=== PATIENT | male | born 1945 | race Caucasian/White ===

== ENCOUNTER 2019-10-21 10:00 | Outpatient (RCR) | payer MEDICARE, OTHER, SELFPAY | END 2020-04-07 07:25 | LOC: CAR 10:00 | PROVIDERS: Family Provider Family Medicine; PCP Family Medicine; Visit Provider Internal Medicine Cardiovascular Disease | DX: Z95.5 Presence of coronary angioplasty implant and graft (principal); I25.2 Old myocardial infarction | CPT/HCPCS: 93798 ==

== ENCOUNTER → 2019-11-20 09:51 | Outpatient (CLI) | payer MEDICARE, OTHER, SELFPAY ==
[2019-11-20 10:40] LABS: Add Manual Diff / Slide Review NO; Basophils Absolute Auto 0 /uL (0-100); Basophils Percent Auto 0.4 % (0-2); Eosinophils Absolute Auto 100 /uL (0-450); Eosinophils Percent Auto 1.2 % (2-4); Hematocrit 42.5 % (41-53); Hemoglobin 14.4 g/dL (13.5-17.5); Lymphocytes Absolute Auto 1300 /uL (1100-4500); Lymphocytes Percent Auto 17.6 % (25-40); Mean Corpuscular Hemoglobin 33.6 PG (26-34); Mean Corpuscular Volume 98.9 fL (80-100); Monocytes Absolute Auto 600 /uL (0-900); Monocytes Percent Auto 8.5 % (3-14); Neutrophils Absolute Auto 5400 /uL (1500-7000); Neutrophils Percent Auto 72.3 % (50-75); Platelet Count 176 X10^3/uL (150-400); Red Blood Cell Count 4.29 X10^6/uL (4.5-5.9); Red Cell Distribution Width 13.8 % (11.6-14.8); White Blood Cell Count 7.4 X10^3/uL (4.5-11.0)
[2019-11-20 11:44] LABS: BUN Creatinine Ratio 14.2 (6-22); Blood Urea Nitrogen 18 mg/dL (9-20); Calcium 9.6 mg/dL (8.4-10.2); Carbon Dioxide 29 mmol/L (22-32); Chloride 104 mmol/L (98-107); Cholesterol 105 mg/dL (140-199); Estimated Glomerular Filt Rate 55.7 mL/min (>60); Glucose 103 mg/dL (80-110); HDL Cholesterol 27 mg/dL (40-60); HEMOLYSIS < 15 (0-50); LDL Cholesterol Calculated 41 mg/dL (<100); Potassium 4.6 mmol/L (3.4-5.1); Sodium 140 mmol/L (137-145); Triglycerides 186 mg/dL (35-150)
== END ==
PROVIDERS: Family Provider Family Medicine; PCP Internal Medicine; Referring Provider Internal Medicine Cardiovascular Disease; Visit Provider Internal Medicine Cardiovascular Disease
DX: I10 Essential (primary) hypertension (principal); E78.5 Hyperlipidemia, unspecified
CPT/HCPCS: 36415; 80048; 80061; 85025

== ENCOUNTER → 2020-06-21 07:55 | Outpatient (CLI) | payer MEDICARE, OTHER, SELFPAY ==
[2020-06-21 09:32] LABS: Add Manual Diff / Slide Review NO; Basophils Absolute Auto 0 /uL (0-100); Basophils Percent Auto 0.9 % (0-2); Eosinophils Absolute Auto 100 /uL (0-450); Eosinophils Percent Auto 1.4 % (2-4); Hematocrit 42.1 % (41-53); Hemoglobin 14.5 g/dL (13.5-17.5); Lymphocytes Absolute Auto 1600 /uL (1100-4500); Mean Corpuscular HGB Conc 34.5 % (30-36); Mean Corpuscular Hemoglobin 33.8 PG (26-34); Mean Corpuscular Volume 98.2 fL (80-100); Monocytes Absolute Auto 400 /uL (0-900); Monocytes Percent Auto 7.6 % (3-14); Neutrophils Absolute Auto 2700 /uL (1500-7000); Neutrophils Percent Auto 56.1 % (50-75); Platelet Count 159 X10^3/uL (150-400); Red Blood Cell Count 4.29 X10^6/uL (4.5-5.9); Red Cell Distribution Width 13.6 % (11.6-14.8); White Blood Cell Count 4.8 X10^3/uL (4.5-11.0)
[2020-06-21 10:11] LABS: BUN Creatinine Ratio 17.1 (6-22); Blood Urea Nitrogen 22 mg/dL (9-20); Calcium 9.3 mg/dL (8.4-10.2); Carbon Dioxide 30 mmol/L (22-32); Chloride 100 mmol/L (98-107); Cholesterol 144 mg/dL (140-199); Estimated Glomerular Filt Rate 54.6 mL/min (>60); Glucose 110 mg/dL (80-110); HDL Cholesterol 32 mg/dL (40-60); HEMOLYSIS < 15 (0-50); LDL Cholesterol Calculated 50 mg/dL (<100); Potassium 4.9 mmol/L (3.4-5.1); Sodium 135 mmol/L (137-145); Triglycerides 311 mg/dL (35-150)
== END ==
PROVIDERS: Family Provider Family Medicine; PCP Internal Medicine; Referring Provider Internal Medicine Cardiovascular Disease; Visit Provider Internal Medicine Cardiovascular Disease
DX: E78.5 Hyperlipidemia, unspecified (principal); I10 Essential (primary) hypertension
CPT/HCPCS: 36415; 80048; 80061; 85025

== ENCOUNTER → 2022-05-18 16:46 | Outpatient (CLI) | payer MEDICARE, OTHER, SELFPAY | PROVIDERS: Family Provider Family Medicine; PCP Internal Medicine; Referring Provider Internal Medicine; Visit Provider Internal Medicine | DX: Z23 Encounter for immunization (principal) | CPT/HCPCS: 90471; 90662 ==

== ENCOUNTER → 2022-08-07 07:47 | Outpatient (CLI) | payer MEDICARE, OTHER, SELFPAY ==
[2022-08-07 08:53] LABS: Add Manual Diff / Slide Review NO; Basophils Absolute Auto 0 /uL (0-100); Basophils Percent Auto 0.7 % (0-2); Eosinophils Absolute Auto 100 /uL (0-450); Eosinophils Percent Auto 2.3 % (2-4); Hematocrit 41.5 % (41-53); Lymphocytes Absolute Auto 1600 /uL (1100-4500); Lymphocytes Percent Auto 36.5 % (25-40); Mean Corpuscular HGB Conc 33.7 % (30-36); Mean Corpuscular Hemoglobin 32.8 PG (26-34); Mean Corpuscular Volume 97.3 fL (80-100); Monocytes Absolute Auto 300 /uL (0-900); Monocytes Percent Auto 6.6 % (3-14); Neutrophils Absolute Auto 2300 /uL (1500-7000); Neutrophils Percent Auto 53.9 % (50-75); Platelet Count 169 X10^3/uL (150-400); Red Blood Cell Count 4.26 X10^6/uL (4.5-5.9); Red Cell Distribution Width 14.2 % (11.6-14.8); White Blood Cell Count 4.3 X10^3/uL (4.5-11.0)
[2022-08-07 08:56] LABS: BUN Creatinine Ratio 14.2 (6-22); Blood Urea Nitrogen 17 mg/dL (9-20); Calcium 8.8 mg/dL (8.4-10.2); Carbon Dioxide 28 mmol/L (22-32); Chloride 100 mmol/L (98-107); Cholesterol 170 mg/dL (140-199); Estimated Glomerular Filt Rate > 60 mL/min (>60); Glucose 108 mg/dL (80-110); HDL Cholesterol 29 mg/dL (40-60); HEMOLYSIS < 15 (0-50); LDL Cholesterol Calculated 91 mg/dL (<100); Potassium 4.8 mmol/L (3.4-5.1); Sodium 136 mmol/L (137-145); Triglycerides 249 mg/dL (35-150)
== END ==
PROVIDERS: Family Provider Family Medicine; PCP Internal Medicine; Referring Provider Internal Medicine Cardiovascular Disease; Visit Provider Internal Medicine Cardiovascular Disease
DX: E78.5 Hyperlipidemia, unspecified (principal); I25.10 Atherosclerotic heart disease of native coronary artery without angina pectoris
CPT/HCPCS: 36415; 80048; 80061; 85025

== ENCOUNTER → 2023-02-19 12:56 | Outpatient (CLI) | payer MEDICARE, OTHER, SELFPAY ==
--- NOTE | 2023-02-19 | DI.US.S_ITS ---
PROCEDURE: US RENAL COMPLETE INDICATIONS: Hesitancy of micturition TECHNIQUE: Real-time scanning was performed of the kidneys and bladder, with image documentation. COMPARISON: None. FINDINGS: Kidneys: Kidneys are normal in size. Right kidney measures 12.4 cm long; left kidney measures 13.9 cm long. Right renal cortical thickness is 1.8 cm; left renal cortical thickness is 1.4 cm. Renal cortical echotexture is normal. No hydronephrosis or nephrolithiasis. No suspicious solid mass lesions. Renal cortical cysts are present bilaterally without suspicious features identified. Bladder: Pre-void bladder volume is 242 mL. Post-void residual is 88 mL. Pre-void images demonstrate no intraluminal masses or stones. On pre-void images, both ureteral jets are noted with color Doppler interrogation. (Of note, ureteral jets may not be detectable in up to 25% of cases due to insufficient differences in specific gravity between ureteral and bladder urine). Miscellaneous: No free pelvic fluid. Prostate gland is difficult to visualize sonographically but appears enlarged measuring approximately 6.0 x 6.7 cm. IMPRESSION: 1. No hydronephrosis or evidence of nephrolithiasis. 2. Postvoid residual urinary bladder volume of 88 cc. Dictated by: Aris Potter M.D. on 02/19/2023 at 21:27 Approved by: Aris Potter M.D. on 02/19/2023 at 21:30
== END ==
PROVIDERS: Family Provider Family Medicine; PCP Internal Medicine; Referring Provider Internal Medicine; Visit Provider Internal Medicine
DX: R39.11 Hesitancy of micturition (principal); N28.1 Cyst of kidney, acquired
CPT/HCPCS: 76770

== ENCOUNTER → 2023-03-18 11:09 | Outpatient (CLI) | payer MEDICARE, OTHER, SELFPAY ==
--- NOTE | 2023-03-18 | DI.MRI.S_ITS ---
PROCEDURE: MR PELVIC PROSTATE PROTOCOL INDICATIONS: ELEVATED PSA TECHNIQUE: Coronal HASTE, axial T1 FSE with fat saturation, 3-plane nonbreath-hold T2 FSE. After the administration of contrast, dynamic axial, delayed axial and coronal VIBE or 2-D FLASH with fat saturation through the pelvis. Optional diffusion weighted imaging and ADC may be performed. COMPARISON: None. FINDINGS: Image quality: Diffusion weighted and dynamic contrast enhanced images are diagnostic. Prostate: 5.3 x 6.5 x 5.3 cm. Estimated volume is 95 cc. Transitional zone heterogenous nodules are present, either well encapsulated or mostly encapsulated, compatible with PI-RADS 1 or 2 likely BPH nodules. Mildly T2 hypointense heterogenous striated appearance of the peripheral zone is commonly seen with current or prior prostatitis, PI-RADS 2. Right mid gland peripheral zone lesion, centered in the posterolateral region, measuring 2.4 x 2.3 x 1.6 cm (5/17, 4/16). DCE positive. T2, DWI score 5. DCE positive. PI-RADS 5. Questionable capsular irregularity is seen at the lateral aspect. (4/10). This region extends to the midline apex. Left apex posterolateral peripheral zone (4/19, 5/15) measuring 0.9 x 0.9 x 0.8 cm. T2 score 4. DWI score 4. DCE positive. PI-RADS 4. Seminal vesicles appear clear. Genitourinary system: Trabeculated bladder, most commonly sequelae of chronic obstruction. No hydronephrosis. Bowel and peritoneum: Colonic diverticula. No pathologic ascites. Possible mild inflammation of the sigmoid colon (21/28). Nodes and vessels: No nodes identified that are enlarged by size criteria. Pelvic lymph nodes are indeterminate in the setting of possible prostate malignancy. No aneurysmal vessel identified. Soft tissues: Pelvic wall is unremarkable. Bones: No acute or suspicious osseous finding. IMPRESSION: PI-RADS 5 lesion on the right, with possible extracapsular disease. Smaller PI-RADS 4 lesions seen at the left apex. BPH and prostatomegaly. Possible mild inflammation of the sigmoid colon representing focal colitis versus diverticulitis, correlate with any symptoms. Correlate with any history of age-appropriate colonoscopy results. This was marked as an urgent result in PACS. Dictated by: Tariq Haddad M.D. on 03/18/2023 at 13:33 Approved by: Tariq Haddad M.D. on 03/18/2023 at 13:42
== END ==
PROVIDERS: Family Provider Family Medicine; PCP Internal Medicine; Referring Provider Internal Medicine; Visit Provider Internal Medicine
DX: N40.0 Benign prostatic hyperplasia without lower urinary tract symptoms (principal); R97.20 Elevated prostate specific antigen [PSA]; N42.9 Disorder of prostate, unspecified; K57.90 Diverticulosis of intestine, part unspecified, without perforation or abscess without bleeding; N32.89 Other specified disorders of bladder
CPT/HCPCS: 72197; A9579

== ENCOUNTER → 2023-05-16 15:33 | Outpatient (CLI) | payer MEDICARE, OTHER, SELFPAY | PROVIDERS: Family Provider Family Medicine; PCP Internal Medicine; Referring Provider Family Medicine; Visit Provider Family Medicine | DX: Z23 Encounter for immunization (principal) | CPT/HCPCS: 90471; 90662 ==

== ENCOUNTER → 2023-09-02 12:29 | Outpatient (CLI) | payer MEDICARE, OTHER, SELFPAY | PROVIDERS: Family Provider Family Medicine; PCP Internal Medicine; Referring Provider Nurse Practitioner Family; Visit Provider Nurse Practitioner Family | DX: Z01.818 Encounter for other preprocedural examination (principal) | CPT/HCPCS: 93005 ==

== ENCOUNTER → 2024-01-15 14:14 | Outpatient (CLI) | payer MEDICARE, OTHER, SELFPAY ==
[2024-01-15 16:19] LABS: Prostate Specific Antigen < 0.064 ng/mL (0.10-4.00)
== END ==
LOC: LAB 14:15
PROVIDERS: Family Provider Family Medicine; PCP Internal Medicine; Referring Provider Nurse Practitioner Family; Visit Provider Nurse Practitioner Family
DX: C61 Malignant neoplasm of prostate (principal)
CPT/HCPCS: 84153; 84402; 84403

== ENCOUNTER → 2024-03-19 06:25 | Outpatient (CLI) | payer MEDICARE, OTHER, SELFPAY ==
[2024-03-19 11:35] LABS: Prostate Specific Antigen < 0.064 ng/mL (0.10-4.00); Testosterone 9.23 ng/dL (71.8-623)
== END ==
PROVIDERS: Family Provider Family Medicine; PCP Internal Medicine; Referring Provider Nurse Practitioner Family; Visit Provider Nurse Practitioner Family
DX: C61 Malignant neoplasm of prostate (principal)
CPT/HCPCS: 36415; 84153; 84403

== ENCOUNTER → 2024-09-16 08:27 | Outpatient (CLI) | payer MEDICARE, OTHER, SELFPAY ==
[2024-09-16 08:54] LABS: Hematocrit 34.2 % (41-53); Hemoglobin 11.6 g/dL (13.5-17.5); Mean Corpuscular HGB Conc 33.9 % (30-36); Mean Corpuscular Hemoglobin 32.9 PG (26-34); Mean Corpuscular Volume 97.2 fL (80-100); Platelet Count 140 X10^3/uL (150-400); Red Blood Cell Count 3.52 X10^6/uL (4.5-5.9); Red Cell Distribution Width 14.8 % (11.6-14.8)
[2024-09-16 09:20] LABS: BUN Creatinine Ratio 14.7 (6-22); Blood Urea Nitrogen 17 mg/dL (9-20); Calcium 9.2 mg/dL (8.4-10.2); Carbon Dioxide 26 mmol/L (22-32); Chloride 103 mmol/L (98-107); Cholesterol 104 mg/dL (140-199); Estimated Glomerular Filt Rate > 60 mL/min (>60); Glucose 102 mg/dL (80-110); HDL Cholesterol 28 mg/dL (40-60); HEMOLYSIS < 15 (0-50); LDL Cholesterol Calculated 26 mg/dL (<100); Potassium 4.8 mmol/L (3.4-5.1); Sodium 137 mmol/L (137-145); Triglycerides 249 mg/dL (35-150)
== END ==
PROVIDERS: Family Provider Family Medicine; PCP Internal Medicine; Referring Provider Internal Medicine Cardiovascular Disease; Visit Provider Internal Medicine Cardiovascular Disease
DX: E78.5 Hyperlipidemia, unspecified (principal); I10 Essential (primary) hypertension
CPT/HCPCS: 36415; 80048; 80061; 85027

== ENCOUNTER 2024-10-01 08:27 | Day surgery (SDC) | payer MEDICARE, OTHER, SELFPAY ==
--- NOTE | 2024-10-01 | PATH_ITS ---
[facility] Accession Number: [id number] No. of containers..03 Tissue . 01 Material submitted: . PART A: stomach - ANTRUM PART B: colon - TRANSVERSE COLON POLYPS PART C: colon - CECAL POLYPS . 01 Diagnosis: Part A: ANTRUM: Gastric mucosa with mild chronic inflammation, with erosion No Helicobacter organisms identified. No intestinal metaplasia, dysplasia, or malignancy identified. . Part B: TRANSVERSE COLON POLYPS: Tubular adenomas. . Part C: CECAL POLYPS: Tubular adenomas. [facility] 10/06/20241832 Local . 01 Electronically signed: . Milo Major MD, Pathologist NPI- [id number] . 01 Gross description: . A. Received in formalin with two patient identifiers and antrum biopsy, are four cheng soft tissue fragments, 0.2-0.4 cm in greatest dimension, submitted in A1. . B. Received in formalin with two patient identifiers and transverse colon polyps, are two cheng soft tissue fragments admixed with debris aggregating to 1.9 x 0.5 x 0.2 cm. Filtered and submitted in B1. . C. Received in formalin with two patient identifiers and cecal polyps, are two cheng soft tissue fragments, 0.5-0.9 cm in greatest dimension, submitted in C1. ([id number]) /MRV 10/06/20241832 Local . 01 Microscopic: . Part A: ANTRUM: An immunohistochemical stain was performed to evaluate for Helicobacter organisms and is negative. The control stains appropriately. * This test was developed and the performance characteristics were validated by [employer]. It has not been cleared or approved by the Food and Drug Administration. . 01 Pathologist provided ICD-10: D12.0, D12.3, K29.50 . 01 CPT . 545360, 082904, 901175, [id number] Specimen Comment: A courtesy copy of this report has been sent to [phone] Performed at: [address] [id number] MD Milo Major MD Phone: [phone]
[2024-10-01] MEDS: LACTATED RINGERS 1,000 ML 42 ML IV (08:55)
[2024-10-01 09:06] VITALS: BP 152/79; PULSE 97; RESP 18; TEMP 36.6; O2SAT 98
--- NOTE | 2024-10-01 09:26 | P.HP_ITS ---
History of Present Illness History of Present Illness Date Patient Seen: 10/01/24 Time Patient Seen: 09:27 Chief complaint: EGD & Colonoscopy w/poss bx's Narrative: Diego is a 79 year old man in for an EGD and colonoscopy. He had a recent hemoglobin of 11. PFSH Social History Smoking Status: Never smoker alcohol intake: current Meds Home Medications and Allergies Home Medications Medication Instructions Recorded Confirmed Type Respironics DreamStation CPAP #1 ea 10/13/18 05/09/22 History allopurinol 300 mg tablet 300 mg PO DAILY 10/13/18 10/01/24 History metronidazole 1 % topical gel 1 applictn topical DAILY 10/13/18 10/01/24 History omeprazole 20 mg capsule,delayed 20 mg PO DAILY 10/13/18 10/01/24 History release probenecid 500 mg-colchicine 0.5 1 tab PO DAILY 10/13/18 10/01/24 History mg tablet testosterone 10 mg/0.5 10 mg transdermal DAILY 10/13/18 05/09/22 History gram/actuation transdermal gel pump (Fortesta) zolpidem 10 mg tablet 10 mg PO BEDTIME PRN Restless 10/13/18 10/01/24 History Leg(S) cholecalciferol (vitamin D3) PO 04/16/19 05/09/22 History metoprolol succinate 25 mg 25 mg PO DAILY 04/16/19 10/01/24 History tablet,extended release 24 hr (Toprol XL) sennosides 8.6 mg tablet (senna) 8.6 mg PO BID PRN Constipation 04/16/19 10/01/24 History amlodipine 5 mg tablet 5 mg PO DAILY 10/15/19 10/01/24 History rosuvastatin 5 mg tablet 5 mg PO DAILY 10/15/19 10/01/24 History nitroglycerin 0.4 mg sublingual 0.4 mg sublingual Q5M PRN Chest 04/21/20 10/01/24 History tablet Pain Respironics DreamStation 10/18/21 05/09/22 History Allergies Allergy/AdvReac Type Severity Reaction Status Date / Time morphine AdvReac Intermediate SEVERE Verified 10/01/24 08:56 NAUSEA Exam Vital Signs (past 8 hours): - 10/01/24 09:06 Temperature 97.9 F Pulse Rate 97 H Respiratory Rate 18 Blood Pressure 152/79 H Pulse Oximetry 98 Oxygen Delivery Method Room Air Oxygen Delivery Method Room Air Const General: No acute distress Resp Effort & Inspection: normal respiratory effort Assessment & Plan Assessment and plan (1) Epigastric abdominal pain: Status: Acute Plan EGD and colonoscopy Time-Based Coding :: [TOTAL MINUTES] spent with patient and on the chart (including review of chart, obtaining history, exam, reviewing outside data, placing orders, documenting exam and treatment plan, and counseling patient) on [DATE]. [employer] Operator Document charge(s): No
[2024-10-01 10:03] VITALS: BP 100/58; PULSE 86; RESP 16; TEMP 36.4; O2SAT 94
--- NOTE | 2024-10-01 10:06 | P.OP.EGD&C_ITS ---
Operative Date/Time/Diagnoses Date of procedure: 10/01/24 Time of procedure: 10:07 Pre-op diagnosis: Melena Post-op diagnosis: same Procedure & Clinicians Study performed: EGD and colonoscopy Same procedure as scheduled: Yes Surgeon: Edward Stover Procedure Notes Procedure in detail: Surgeon: Edward Stover MD Anesthesia: Aniyah Lovell CRNA Procedure in detail: A timeout was performed. A bite blocked was placed and monitors were attached to the patient. The patient was positioned in the left lateral decubitus position. Sedation was administered. Once the patient was sedated the endoscope was inserted through the bite block and passed through the esophagus and stomach and into the duodenum. The duodenal mucosa appeared normal. We then withdrew the scope into the stomach. There was moderate antritis and some old blood. Biopsies were taken from the antrum with cold forceps. There were no visible ulcers. The endoscope was retroflexed and a very small hiatal hernia was noted. The endoscope was straightned and withdrawn into the esophagus. No other abnormalities were found. EGD findings: Moderate antritis Next we repositioned the patient for a colonoscopy. A digital rectal exam was performed and was normal. The colonoscope was inserted and advanced to the c ecum. The appendiceal orifice was identified and photographed. The scope was slowly withdrawn over greater than 6 minutes. There were 2 small cecal polyps removed with cold snare and sent together. There were 2 small transverse polyps removed with cold snare and sent together. The scope was retroflexed in the rectum and no other abnormalities were found. Colonoscopy findings: 2 small cecal polyps and 2 small transverse polyps Total procedural EBL: 5 mL Scope withdrawal time: 11 minutes Sedation minutes: 25 minutes Post-procedure Disposition: PACU
[2024-10-01 10:08] VITALS: BP 104/60; PULSE 82; RESP 15; O2SAT 93
[2024-10-01 10:13] VITALS: BP 103/57; PULSE 82; RESP 14; O2SAT 93
[2024-10-01 10:21] VITALS: BP 107/67; PULSE 79; RESP 16; O2SAT 96
[2024-10-01 10:25] VITALS: BP 126/73; PULSE 84; RESP 13; O2SAT 96
== END 2024-10-01 10:38 | disposition home or self-care (01) ==
PROVIDERS: Family Provider Family Medicine; PCP Internal Medicine; Referring Provider Surgery; Visit Provider Surgery
PROC: 0DJ08ZZ Inspection of Upper Intestinal Tract, Via Natural or Artificial Opening Endoscopic (ICD-10-PCS; CPT 45385; principal; 2024-10-01 10:00)
PROC: 0DJD8ZZ Inspection of Lower Intestinal Tract, Via Natural or Artificial Opening Endoscopic (ICD-10-PCS; CPT 45378; 2024-10-01 10:00)
DX: K92.1 Melena (principal); K29.50 Unspecified chronic gastritis without bleeding; K44.9 Diaphragmatic hernia without obstruction or gangrene; D12.0 Benign neoplasm of cecum; D12.3 Benign neoplasm of transverse colon
CPT/HCPCS: 45385; 43239; J2704

== ENCOUNTER → 2024-10-11 11:00 | Outpatient (CLI) | payer MEDICARE, OTHER, SELFPAY ==
[2024-10-11 12:27] LABS: Influenza A - CEPHEID Flu A NEGATIVE (NEGATIVE); Influenza B - CEPHEID Flu B NEGATIVE (NEGATIVE); Respiratory Syncytial Virus Negative (Negative)
[2024-10-11 12:48] LABS: COVID-19 CEPHEID 4-PLEX PCR POSITIVE (Negative)
== END ==
PROVIDERS: Family Provider Family Medicine; PCP Internal Medicine; Visit Provider Physician Assistant Surgical
DX: R05.1 Acute cough (principal)
CPT/HCPCS: 0241U

== ENCOUNTER → 2025-03-08 12:12 | Outpatient (CLI) | payer MEDICARE, OTHER, SELFPAY ==
--- NOTE | 2025-03-08 12:13 | DI.ECHO.S_ITS ---
[facility] : : [id number] : [address] : : [id number] : : Phone: [phone] Echocardiogram Report + + :Name: ZAIDA ZARATE Study Date: 03/08/2025 Height: 71 in : :[facility] ReadingLocation: Weight: 250 lb : : Gender: Male BSA: 2.3 m2 : :: 1945 Age: 80 yrs BP: 131/77 mmHg: :Reason For Study: HEART MURMUR : :Ordering Physician: DAKOTAH, : :LISA Performed By: Charmaine Andres : :Referring: LISA JUAREZ : + + Interpretation Summary 1) Normal left ventricular size, wall motion, and systolic function (EF 60- 65%). 2) Upper normal right ventricular size with normal function. 3) There is mild aortic valve sclerosis. No aortic stenosis or aortic regurgitation present. 4) The right ventricular systolic pressure is estimated to be at least 44 mmHg based on an estimated right atrial pressure of 8 mm Hg. 5) Compared to the Echo done 07/15/2019, no significant change. Procedure: A two-dimensional transthoracic echocardiogram with color flow and Doppler was performed. The study quality was technically adequate. Comparison is made with the echocardiogram of 07/15/2019. The patient was in sinus rhythm with heart rates between 68-92 bpm during the exam. Left Ventricle: The left ventricle is normal in size. There is mild concentric left ventricular hypertrophy. The ejection fraction is estimated to be 60-65%. Left ventricular systolic function appears normal without focal wall motion abnormalities. Grade II diastolic dysfunction with elevated left atrial pressure. Right Ventricle: The right ventricle is at the upper limits of normal in size. The right ventricular systolic function is normal. Atria: The left atrium is moderately dilated. The right atrium is borderline dilated. There is no Doppler evidence for an interatrial shunt. Mitral Valve: There is mild mitral annular calcification. The mitral valve leaflets appear to open well. There is mild mitral regurgitation. Aortic Valve: The aortic valve is mildly calcified. There is mild aortic valve sclerosis. There is no aortic valve stenosis. No aortic regurgitation is present. Tricuspid Valve: The tricuspid valve leaflets are thin and pliable. There is mild tricuspid regurgitation. The right ventricular systolic pressure is estimated to be at least 44 mmHg based on an estimated right atrial pressure of 8 mm Hg. Pulmonic Valve: The pulmonic valve leaflets are thin and pliable; valve motion is normal. There is no pulmonic valvular regurgitation. Great Vessels: The aortic root is normal size. The dimensions of the ascending aorta are normal. The IVC is dilated (diameter is greater than 2.1 cm) yet it collapses greater than 50% with a sniff. This suggests a right atrial pressure of 8 mm Hg. Pericardium/ Pleura There is no pericardial effusion. There is no pleural effusion. MMode/2D Measurements & Calculations LVIDd: 5.4 cm LVOT diam: 2.3 cm LVIDs: 3.6 cm Ao root diam: 4.0 cm FS: 33.3 % asc Aorta Diam: 3.5 cm IVSd: 1.1 cm Ao Arch Diam (Prox Trans): 3.0 cm LVPWd: 1.1 cm LV carpenter. diameter/BSA (cm/m^2): 2.3 LV sys. diameter/BSA (cm/m^2): 1.5 LA A2 area: 24.2 cm2 RA long axis: 5.8 cm LA A4 area: 23.6 cm2 RA area: 23.1 cm2 LA length (vol): 6.1 cm RA vol: 78.6 ml LA vol: 79.9 ml RA : 33.9 ml/m2 LA vol index: 34.5 ml/m2 IVC diam: 2.2 cm RVD1 (basal): 4.1 cm TAPSE: 2.0 cm Doppler Measurements & Calculations Ao V2 max: 159.0 cm/sec LVOT Max Carl: 95.9 cm/sec Ao V2 mean: 111.0 cm/sec LV V1 max P.7 mmHg Ao max P.7 mmHg LV V1 VTI: 21.3 cm Ao mean P.6 mmHg MATILDE(I,D): 2.6 cm2 Ao V2 VTI: 35.7 cm MATILDE(V,D): 2.6 cm2 sev ratio: 0.60 MATILDE indexed to BSA (cm^2/m^2): 1.1 MV E max carl: 114.6 cm/sec TR max acrl: 298.4 cm/sec MV A max carl: 59.0 cm/sec TR max P.6 mmHg MV E/A: 1.9 PA V2 max: 96.7 cm/sec Med Peak E' Carl: 7.8 cm/sec PA V2 mean: 68.2 cm/sec E/E' med: 14.7 PA mean P.0 mmHg Lat Peak E' Carl: 6.7 cm/sec PA pr(Accel): 29.8 mmHg E/E' lat: 17.0 E/e' average: 15.8 MV dec time: 0.20 sec MVA(VTI): 2.9 cm2 MV V2 mean: 70.1 cm/sec SV(LVOT): 91.5 ml MV mean P.2 mmHg MV V2 VTI: 31.6 cm Reading Physician:12:13 PM
== END ==
PROVIDERS: Family Provider Family Medicine; PCP Internal Medicine; Referring Provider Internal Medicine Cardiovascular Disease; Visit Provider Internal Medicine Cardiovascular Disease
DX: I08.3 Combined rheumatic disorders of mitral, aortic and tricuspid valves (principal); R01.1 Cardiac murmur, unspecified
CPT/HCPCS: 93306